=== PATIENT | female | born 1960 | race Caucasian/White ===

== ENCOUNTER 2016-05-24 06:14 | Day surgery (SDC) | payer MEDICARE, MEDICAID ==
[~2016-05-24] VITALS: Ht 165.1 cm; Wt 71.3 kg
[~2016-05-24 06:14] MED LIST: ACET-62 PO; ALBU18HF2 INH; CYCL-375 PO; FLUT1DIS3 INH; METO50TA5 PO; ROPI0.5T5 PO; TRAZ-170 PO
[2016-05-24 06:29] VITALS: BP 170/91; PULSE 69; RESP 16; TEMP 97.5; O2SAT 97; Ht 165.1 cm; Wt 71.3 kg
[2016-05-24] MEDS ORDERED: IBUP-1724 PO (06:38)
[2016-05-24 06:43] VITALS: BP 148/98
[2016-05-24] MEDS ORDERED: LR 1,000 ML IV SCH (07:00)
[2016-05-24] MEDS ORDERED: LIDOCAINE 1% (10mg/ml) 2ml SDV INJ ONE (07:00)
--- NOTE | 2016-05-24 07:10 | ANESPREOP ---
Anesthesia Record Date and Time DATE: 05/24/16 TIME: 07:09 Pre-Op Diagnosis crcs Proposed Surgical Procedure COLONOSCOPY Allergies: Coded Allergies: aspirin (Verified Allergy, Unknown, BLEEDING, 05/24/16) morphine (Verified Allergy, Unknown, RASH,HIVES, 05/24/16) Ht/Wt/BMI Height: 5 ' 5.00 " Weight: 71.300 kg BMI: 26.2 kg/m2 Vital Signs Date Time Temp Pulse Resp B/P Pulse Ox O2 Delivery O2 Flow Rate FiO2 05/24/16 06:43 148/98 05/24/16 06:29 97.5 69 16 97 Room Air Medications Inpatient Medications Current Medications Medications (Trade) Dose Ordered Sig/Diane Start Time Stop Time Status Last Admin Dose Admin Lactated Ringer's (Lactated Ringers) 1,000 ml @ 50 mls/hr Q20H 05/24/16 07:00 05/24/16 06:52 50 MLS/HR Acetaminophen (Acetaminophen) 500 Mg Tablet, 1,000 MG PO Q8H PRN for PAIN, ( Reported) Do not exceed 3,200 mg of acetaminophen in a 24 hours period. Last Taken: on Unknown Date & Time Albuterol Sulfate (Ventolin HFA 90 mcg/ actuation) 18 Gm Hfa.aer.ad, 1-2 PUFF INH PRN, (Reported) Last Taken: on Unknown Date & Time Cyclobenzaprine HCl (Cyclobenzaprine HCl ) 10 Mg Tablet, 1 TAB PO Q6H PRN for MUSCLE PAIN, (Reported) Last Taken: on 05/22/161999 Fluticasone/Salmeterol (Advair 250-50 Diskus) 1 Disk W/Dev Inhaler, 1 CAP INH PRN, (Reported) Last Taken: on Unknown Date & Time Ibuprofen (Ibuprofen) 200 Mg Tablet, 1 TAB PO Q4H PRN for PAIN, (Reported) Last Taken: on 05/21/16 Metoprolol Tartrate (Metoprolol Tartrate) 50 Mg Tablet, 2 TAB PO DAILY, (Reported) Take 1 tablet, by mouth, 2 times a day with meals. Last Taken: on 05/24/16 0500 Ropinirole HCl (Ropinirole HCl) 0.5 Mg Tablet, 0.5 MG PO HS, (Reported) Last Taken: on 05/22/161999 Trazodone HCl (Trazodone HCl) 50 Mg Tablet, 50 MG PO HS, (Reported) Last Taken: on 05/23/161999 Currently on Beta Amalia: Yes Beta Amalia Last Taken: 05-24-16 0500 Medical/Surgical History Anesthesia PMH: Reports: *Dyspnea (WITH EXERTION), *Hypertension (TAKES MEDS), Arthritis, Asthma, COPD (CURRENT SMOKER), Sleep Apnea, Denies: *Angina, * Diabetes, *MO, Anesthesia Reactions (NO KNOWN AIRWAY/INTUBATION ISSUES), Blood Transfusion Reac, CHF, CVA/Stroke/TIA, Cancer, Clotting Problems, Deep Vein Thrombosis, Glaucoma, Hepatitis, Hiatal Hernia, Malignant Hyperthermia, Pacemaker, Pneumonia, Reflux, Renal Disease, Seizures, Thyroid Disease, Tuberculosis Smoking Status: Current every day smoker Has pt. smoked today?: Yes # of Packs per Day: 1 # of Years: 30 Use Chewing Tobacco?: No Second Hand Exposure: No Substance Use Type: does not use Substance last used: unknown Alcohol Intake: rarely Last Drink: unknown HX of Last Menstrual Period: 2007 Past Surgical History Orthopedic Surgeries: Yes - RT SHOULDER FOR CLAVICLE/I&D OF RIGHT HIP , RIGHT HIP REPLACEMENT Abdominal Surgeries: No Genitourinary Surgeries: No Cardiac Surgeries: No Endocrine Surgeries: No Reproductive Surgeries: Yes - X3 Neurological Surgeries: No Ear Surgeries: No Nose Surgeries: Yes - CAUTERIZATION OF ARTERY IN NOSE Throat Surgeries: No Other Surgeries: No Anesthesia Adverse Reactions: FOUND none Family Hx of Anesthesia Advers: none Hx of Motion Sickness: No Pertinent Findings EKG Rhythm: Sinus Rhythm Physical Exam Respiratory: Bilat breath sounds equal, Lungs clear Cardiovascular: FOUND Regular rate, rhythm, FOUND No murmur Airway Assessment Mallampati Score: I TMD: 3 Fingerbreadths Neck Extension: Good Overall Assessment: No Airway Concerns ASA: 2 Plan Anesthesia Plan: TIVA Discussion Discussed risks/options/alternatives of anesthesia and questions answered. Patient consents. Nursing pain assessment noted. Attestation Statement Prior to the delivery of any anesthetic medication, I examined the patient, developed the plan, obtained the patient's consent and discussed the risk and benefits of the procedure with the patient/guardian. YUMI WILSON CRNA May 24, 2016 07:10
[2016-05-24] MEDS ORDERED: PROPOFOL 500mg 50 ML IV ONE (07:28)
[2016-05-24] MEDS ORDERED: LIDOCAINE 1% (10mg/ml) 2ml SDV ONE (07:32)
[2016-05-24 08:09] VITALS: BP 91/54; PULSE 69; RESP 17; TEMP 98.4; O2SAT 98
[2016-05-24 08:25] VITALS: BP 131/57; PULSE 70; RESP 19; O2SAT 95
[2016-05-24 08:40] VITALS: BP 128/90; PULSE 70; RESP 24; O2SAT 96
--- NOTE | 2016-05-24 09:17 | ANESPO ---
Post-Op Note Date 05/24/16 Time: 09:16 Status Pt Participated in Evaluation: Pt participated in person Vital Signs Date Time Temp Pulse Resp B/P Pulse Ox O2 Delivery O2 Flow Rate FiO2 05/24/16 08:40 70 24 128/90 96 Room Air 05/24/16 08:09 98.4 Respiratory Function: Airway patent, Regular respirations Cardiovascular Function: Regular pulse Mental Status: Alert/oriented Pain Level Intensity: 4 Hydration: Taking po fluids Complications during Recovery None apparent Post-Anesthesia Notes pt. [email or web address]. well Follow-Up Instructions Instructions Per Surgeon Additional Information none YUMI WILSON CRNA May 24, 2016 09:17
--- NOTE | 2016-05-24 14:22 | OPNOTEF ---
DATE OF PROCEDURE 05/24/2016 SURGEON Scott Baldwin MD PREOPERATIVE DIAGNOSIS Colorectal cancer surveillance. POSTOPERATIVE DIAGNOSIS Colorectal cancer surveillance, colonic polyps x 2 located in the ascending colon, rectal mucosa irritation. PROCEDURE Colonoscopy with polypectomies via hot forceps technique x2, biopsy of rectal mucosa. ANESTHESIA TIVA. BRIEF HISTORY/INDICATIONS Denisse is a 55-year-old female who was seen in the office for comprehensive exam. They discussed colorectal cancer surveillance and decided to proceed with colonoscopy as part of her screening. For completeness please refer to office notes. FINDINGS Upon colonoscopy there was no evidence for angiodysplastic lesions, diverticula, or suzan malignancies. The patient found to have two small colonic polyps within the ascending colon. These polyps were both removed via hot forceps technique and sent to pathology. The smaller polyp was 4-5 mm in size, larger 5-6 mm in size. She also had some irritated mucosa in the rectum that was biopsied. DESCRIPTION OF PROCEDURE After informed consent was obtained, the patient was brought to the endoscopy suite and placed on the table in the left lateral decubitus position. The patient subsequently underwent total intravenous anesthesia by the nurse edge burnisher per my request. Next, a digital rectal examination was performed; normal sphincter tone. No rectal masses were appreciated. An Olympus colonoscope was inserted in the anus and advanced with the lumen of the colon under direct visualization at all times until the cecum was ascertained. Triangulation of the tenia coli, ileocecal valve and appendiceal lumen were all visualized. The scope was then slowly withdrawn, again while maintaining visualization of the lumen at all times. As stated above, the entire colon was without evidence for angiodysplastic lesions, diverticula, or suzan malignancies. The patient was found to have two colonic polyps as described above. The patient was also found to have some irritated rectal mucosa that was biopsied. Photographs were taken for documentation. The scope continued to be withdrawn until it was removed from the patient's anal verge. The patient tolerated the procedure without difficulty and was sent back to the preoperative area in stable condition. We will await the biopsy results from these polypectomies to make further recommendations. We will contact her the results. DEMARIO
== END 2016-05-24 09:15 | disposition home or self-care (01) ==
LOC: NSC 06:14
PROVIDERS: ATTEND Family Medicine
DX: Z12.11 Encounter for screening for malignant neoplasm of colon (principal); D12.2 Benign neoplasm of ascending colon; K62.89 Other specified diseases of anus and rectum; K62.5 Hemorrhage of anus and rectum; G25.81 Restless legs syndrome; G47.00 Insomnia, unspecified; I10 Essential (primary) hypertension; J44.9 Chronic obstructive pulmonary disease, unspecified; Z79.899 Other long term (current) drug therapy; F41.9 Anxiety disorder, unspecified
CPT/HCPCS: 45384; J7120